=== PATIENT | female | born 1935 | race Caucasian/White ===

== ENCOUNTER 2016-08-16 14:00 | Outpatient (RCR) | payer MEDICARE, BC ==
[~2016-08-16 14:00] MED LIST: ALDACTONE 25MG25 MG PO; ASPIRIN 32325 MG/TAB PO; ASPIRIN 81M81 MG/TA2 PO; ATARAX 25MG25 MG/TAB PO; ATARAX25 MG PO; BENICAR; CARVEDILOL; COREG 6.256.25 MG/TA PO; COREG12.5 MG PO; ELMIRON 10100 MG/CA1 PO; HYDROXYZINE50 MG PO; IMDUR 60MG60 MG/TAB PO; IMDUR30 MG PO; LIP PO; LISINOPRIL2.5 MG PO; METOPROLOL25 MG PO; MICARDIS80 MG PO; NITROSTAT0.4 MG/TAB SL; NORVASC 5MG5 MG/TAB PO; PEPCID 20MG TAB20 MG; PLAVIX 75MG TAB75 MG PO; TYLENOL 325MG325 MG PO; XANAX0.25 MG PO
== END 2016-09-14 09:31 | disposition home or self-care (01) ==
LOC: WSOT 14:00
DX: G56.03 Carpal tunnel syndrome, bilateral upper limbs (principal)
CPT/HCPCS: G8987-GO; G8988-GO; G8989-GO

== ENCOUNTER 2017-05-08 07:19 | Day surgery (SDC) | payer MEDICARE, BC ==
[~2017-05-08] VITALS: Ht 167.6 cm; Wt 63.6 kg
[2017-05-08] VITALS (7 sets, daily range): BP systolic 98–131; BP diastolic 51–67; PULSE 59–68; TEMP 97.7
[~2017-05-08 07:19] MED LIST changes: +MICARDIS40 MG PO; -MICARDIS80 MG PO
[2017-05-08 08:10] LABS: INR 1.1 (0.8-3.0); PROTHROMBIN TIME 12.7 SECONDS (9.7-12.8)
[2017-05-08 08:11] LABS: MEAN CELL VOLUME 93 fl (80.0-100.0); MEAN CORPUSCULAR HGB CONC 32 g/dl (33.0-37.0); MEAN PLATELET VOLUME 10.5 fl (7.4-10.4); PLATELET COUNT 230 K/mm3 (130-400); RED BLOOD COUNT 3.37 M/mm3 (4.10-5.30); WHITE BLOOD COUNT 4.6 K/mm3 (4.8-10.8)
[2017-05-08 08:13] LABS: HEMATOCRIT 31.2 % (37.0-47.0); HEMOGLOBIN 10.1 g/dl (12.5-16.0); MEAN CORPUSCULAR HEMOGLOBIN 30 pg (27.0-31.0)
[2017-05-08 08:16] LABS: CALCIUM 10.2 mg/dL (8.4-10.2); CREATININE, serum 1.28 mg/dL (0.52-1.25); POTASSIUM 4.7 mmol/L (3.4-5.0)
[2017-05-08] MEDS ORDERED: ATARAX 25MG25 MG/TAB PO (08:31)
[2017-05-08] MEDS ORDERED: NORVASC 5MG5 MG/TAB PO (08:31)
[2017-05-08] MEDS ORDERED: COREG12.5 MG PO (08:33)
[2017-05-08] MEDS ORDERED: LUTEIN 15 MG-0.1 SGL PO (08:37)
[2017-05-08] MEDS ORDERED: CALCIUM 600-D 61 TAB PO (08:38)
[2017-05-08] MEDS ORDERED: OMEGA-31 SGL PO (08:39)
[2017-05-08] MEDS ORDERED: CEPHALEXIN500 M1 PO (11:07)
== END 2017-05-08 12:09 | disposition home or self-care (01) ==
LOC: COL.CAR 07:19
PROVIDERS: Internal Medicine Cardiovascular Disease
DX: Z45.02 Encounter for adjustment and management of automatic implantable cardiac defibrillator (principal); I25.10 Atherosclerotic heart disease of native coronary artery without angina pectoris; I13.0 Hypertensive heart and chronic kidney disease with heart failure and stage 1 through stage 4 chronic kidney disease, or unspecified chronic kidney disease; I50.9 Heart failure, unspecified; N18.9 Chronic kidney disease, unspecified; I65.29 Occlusion and stenosis of unspecified carotid artery; M19.90 Unspecified osteoarthritis, unspecified site; E78.5 Hyperlipidemia, unspecified; N30.10 Interstitial cystitis (chronic) without hematuria; Z90.710 Acquired absence of both cervix and uterus
CPT/HCPCS: C1721; J0690; J1940; J2250; J3010; J7030

== ENCOUNTER 2017-05-31 11:18 | Emergency (ER) | payer MEDICARE, BC ==
[~2017-05-31] VITALS: Ht 167.6 cm; Wt 63.6 kg
[~2017-05-31 11:18] MED LIST changes: +CALCIUM 600-D 61 TAB PO; +CEPHALEXIN500 M1 PO; +LUTEIN 15 MG-0.1 SGL PO; +OMEGA-31 SGL PO
[2017-05-31 11:22] VITALS: BP 153/68; TEMP 98.1
[2017-05-31] MEDS ORDERED: GOOD NEIGH3.4 GM/Dos PO (11:45)
[2017-05-31] MEDS ORDERED: NORCO 325 MG-51 TAB PO (12:52)
[2017-05-31 13:10] VITALS: PULSE 68
== END 2017-05-31 13:12 | disposition home or self-care (01) ==
LOC: COL.ER 11:18
DX: M79.605 Pain in left leg (principal); F41.9 Anxiety disorder, unspecified; I25.10 Atherosclerotic heart disease of native coronary artery without angina pectoris; Z86.718 Personal history of other venous thrombosis and embolism; Z79.82 Long term (current) use of aspirin; Z79.02 Long term (current) use of antithrombotics/antiplatelets; Z95.5 Presence of coronary angioplasty implant and graft

== ENCOUNTER → 2018-10-09 | Outpatient (CLI) | payer MEDICARE, BC ==
[~2018-10-09] MED LIST changes: +GOOD NEIGH3.4 GM/Dos PO; +NORCO 325 MG-51 TAB PO
== END ==
LOC: MC.RAD 14:28
DX: Z12.31 Encounter for screening mammogram for malignant neoplasm of breast (principal); Z95.0 Presence of cardiac pacemaker

== ENCOUNTER 2019-06-10 16:00 | Emergency (ER) | payer MEDICARE, BC ==
[~2019-06-10 16:00] MED LIST changes: -PEPCID 20MG TAB20 MG; +PEPCID AC 10MG10 MG PO
[2019-06-10 16:05] VITALS: TEMP 98
[2019-06-10 16:32] LABS: BASO % 0.6 % (0.0-2.0); EOS # 0.3 (0.0-0.7); EOS % 3.7 % (0-4.0); GRAN # 4.3 (1.4-6.5); GRAN % 59.9 % (42.2-75.2); HEMOGLOBIN 10.6 g/dl (12.5-16.0); LYMPH # 1.8 (1.2-3.4); LYMPH % 24.6 % (20.0-51.0); MEAN CELL VOLUME 95 fl (80.0-100.0); MEAN CORPUSCULAR HEMOGLOBIN 31 pg (27.0-31.0); MEAN CORPUSCULAR HGB CONC 33 g/dl (33.0-37.0); MEAN PLATELET VOLUME 10.1 fl (7.4-10.4); MONO # 0.8 (0.1-0.6); MONO % 11.1 % (1.7-9.3); PLATELET COUNT 228 K/mm3 (130-400); RED BLOOD COUNT 3.39 M/mm3 (4.10-5.30); REDCELL DISTRIBUTION WIDTH-CV 13.2 % (11.5-14.5)
[2019-06-10 16:43] LABS: ALANINE AMINOTRANSFERASE 20 U/L (9-52); ALBUMIN 4.8 gm/dL (3.5-5.0); ALKALINE PHOSPHATASE 90 U/L (50-136); ANION GAP 14 mmol/L (7-16); AST,SGOT 40 U/L (15-37); BILIRUBIN,TOTAL 0.6 mg/dL (0.0-1.0); BLOOD UREA NITROGEN 21 mg/dL (7-17); CALCIUM 9.7 mg/dL (8.4-10.2); CARBON DIOXIDE 21 mmol/L (22-30); CHLORIDE 103 mmol/L (98-107); CREATININE, serum 1.43 (0.52-1.25); GLUCOSE 119 mg/dL (74-106); POTASSIUM 5.1 mmol/L (3.4-5.0); SODIUM 137 mmol/L (137-145); TOTAL PROTEIN 8.6 gm/dL (6.4-8.2)
[2019-06-10 16:44] LABS: PROTHROMBIN TIME 11.8 SECONDS (9.7-12.8)
[2019-06-10 16:46] LABS: HEMATOCRIT 32.3 % (37.0-47.0)
[2019-06-10 16:47] LABS: PARTIAL THROMBOPLASTIN TIME 32.7 SECONDS (26.0-37.0)
[2019-06-10 16:53] LABS: TROPONIN-I < 0.012 ng/mL (0.000-0.035)
[2019-06-10 18:50] LABS: COLLECTION METHOD CLEAN CATCH
[2019-06-10 18:56] LABS: PH 7 (5-8); SQUAMOUS EPITHELIAL 0-2 /hpf; URINE APPEARANCE Clear; URINE BACTERIA None Seen /hpf; URINE BILIRUBIN Negative (NEGATIVE); URINE BLOOD Negative (NEGATIVE); URINE COLOR Yellow; URINE GLUCOSE Negative (NEGATIVE); URINE KETONE Negative (NEGATIVE); URINE LEUKOCYTE ESTERASE Negative (NEGATIVE); URINE NITRATE Negative (NEGATIVE); URINE PROTEIN(semi-quant) Negative (NEGATIVE); URINE RBC 0-2 /hpf; URINE UROBILINOGEN Negative (NEGATIVE)
[2019-06-10 20:35] VITALS: BP 122/68; PULSE 68
== END 2019-06-10 20:30 | disposition short-term general hospital (02) ==
LOC: COL.ER 16:00
PROVIDERS: Emergency Medicine
DX: G93.9 Disorder of brain, unspecified (principal); I25.10 Atherosclerotic heart disease of native coronary artery without angina pectoris; I50.9 Heart failure, unspecified; Z79.02 Long term (current) use of antithrombotics/antiplatelets
CPT/HCPCS: J7030; Q9967

== ENCOUNTER 2019-06-16 10:59 | Inpatient (IN) | payer MEDICARE, BC ==
[~2019-06-16] VITALS: Ht 165.1 cm; Wt 53.3 kg
--- NOTE | 2019-06-16 16:11 | NUR ---
Patient brought to room by wheel chair. Alert and oriented x4. Denies pain. Right side has been affected by stroke. Daughter in room with the patient.
[2019-06-16] MEDS ORDERED: ASPIRIN 81M81 MG/TA2 PO (16:17)
[2019-06-16] MEDS ORDERED: LOVENOX 3030 MG/0.3 SQ (16:20)
[2019-06-16] MEDS ORDERED: SENOKOT8.6 MG PO (16:22)
[2019-06-16] MEDS ORDERED: ZOLOFT 25MG25 MG PO (16:24)
[2019-06-16] MEDS ORDERED: ZTLIDO1 EACH TP (16:26)
[2019-06-16 16:48] VITALS: BP 119/79; PULSE 69; TEMP 99.5
[2019-06-16 16:50] VITALS: BP 119/79; PULSE 69; TEMP 99.2
--- NOTE | 2019-06-16 18:20 | NUR ---
Sitting on couch in room visiting with friends. Patient denies pain or further needs at this time.
--- NOTE | 2019-06-16 20:00 | NUR ---
PATIENT SITTING UP AT SIDE OF BED DURING SHIFT CHANGE REPORT FROM DAY SHIFT NURSE. DENIES ANY NEEDS OR CONCERNS AT TIME OF REPORT. ENCOURAGED PATIENT TO CALL FOR HELP FOR OUT OF BED ACTIVITIES.
[2019-06-16 20:27] VITALS: BP 114/81; PULSE 74; TEMP 99.3
--- NOTE | 2019-06-17 00:30 | NUR ---
RESTING QUIETLY IN BED WITH EYES CLOSED, DOES NOT AWAKEN WHEN ROOM ENTERED, BED ALARM ENGAGED.
--- NOTE | 2019-06-17 04:00 | NUR ---
BED NOT FUNCTIONING, MOVED TO ROOM 335. BED ALARM ENGAGED.
[2019-06-17 05:46] VITALS: BP 105/56; PULSE 70; TEMP 97.7
--- NOTE | 2019-06-17 07:40 | NUR ---
Patient in bed eating breakfast during shift change report given to day shift nurse. Bed alarm engaged.
--- NOTE | 2019-06-17 15:20 | NUR ---
SW met with the patient to complete initial, as the patient is new to [facility]. The patient lives alone in [place]. She states that her daughter, Lexi Fernandez (ph#[phone]), lives in [place]. She reports independence with ADLs before hospitalization and does not have any DME. The patient's PCP is Dr. Anali Lovett and she receives her medications at [facility]. She reports no difficulties obtaining her meds. The patient does not have advanced directives in EMR, but she states that she does have them completed at at home. She states that her daughter, Lexi, is her DPOA-HC. SW then presented and reviewed the IPR Team Conference Note with the patient and discussed the team's recommedation to re-eval next Saturday. The patient was in agreeance to this and had no other questions or concerns at this time. SW to continue to follow to ensure a safe discharge.
[2019-06-17 16:46] VITALS: BP 119/41; PULSE 66; TEMP 99.1
--- NOTE | 2019-06-17 18:46 | NUR ---
Shift summary: report from WINSTON Cross. Pt is pleasant, oriented x4, takes pills a few at a time with thin liquids, verified DNR status, asked questions about her meds, sitting in chair with alarm on, call lt in reach, glasses and shoes in place.
--- NOTE | 2019-06-17 20:00 | NUR ---
PATIENT UP IN CHAIR DURING SHIFT CHANGE REPORT FROM DAY SHIFT NURSE. CHAIR ALARM ENGAGED.
[2019-06-17] MEDS ORDERED: VISTARIL 2525 MG/CAP PO (21:30)
[2019-06-17] MEDS ORDERED: MICARDIS40 MG PO (21:31)
[2019-06-17] MEDS ORDERED: TYLENOL 500MG500 MG PO (21:35)
[2019-06-17] MEDS ORDERED: FLAXSEED OIL1000 MG PO (21:36)
[2019-06-17] MEDS ORDERED: LUTEIN 15 MG-0.1 SGL PO (21:36)
[2019-06-17] MEDS ORDERED: VITAMIN B COMPL1 SGL PO (21:37)
--- NOTE | 2019-06-18 01:35 | NUR ---
PATIENT RESTING WITH EYES CLOSED, DOES NOT AWAKEN WHEN ROOM ENTERED. BED ALARM ENGAGED
[2019-06-18 05:14] VITALS: BP 99/50; PULSE 72; TEMP 97.9
--- NOTE | 2019-06-18 07:21 | NUR ---
PATIENT RESTING IN BED DURING SHIFT CHANGE REPORT GIVEN TO DAY SHIFT NURSE. BED ALARM ENGAGED.
--- NOTE | 2019-06-18 08:00 | NUR ---
Patient resting in wheelchair awaiting therapy at this time. Patient is alert and oriented, answers questions appropriately. Patient brushes teeth indepentently. Patient denies pain or needs at this time, call light within reach.
[2019-06-18 15:28] VITALS: BP 98/46; PULSE 69; TEMP 100.6
[2019-06-18 17:26] LABS: BASO % 0.4 % (0.0-2.0); EOS # 0.1 (0.0-0.7); GRAN # 8.2 (1.4-6.5); GRAN % 77.5 % (42.2-75.2); LYMPH # 1.2 (1.2-3.4); LYMPH % 11.7 % (20.0-51.0); MEAN CELL VOLUME 93 fl (80.0-100.0); MEAN CORPUSCULAR HGB CONC 34 g/dl (33.0-37.0); MEAN PLATELET VOLUME 10.1 fl (7.4-10.4); PLATELET COUNT 211 K/mm3 (130-400); RED BLOOD COUNT 2.91 M/mm3 (4.10-5.30); REDCELL DISTRIBUTION WIDTH-CV 12.4 % (11.5-14.5)
[2019-06-18 17:28] LABS: CALCIUM 9.4 mg/dL (8.4-10.2); CREATININE, serum 1.38 (0.52-1.25); POTASSIUM 4.9 mmol/L (3.4-5.0)
[2019-06-18 17:33] LABS: HEMATOCRIT 27.1 % (37.0-47.0); HEMOGLOBIN 9.1 g/dl (12.5-16.0); MEAN CORPUSCULAR HEMOGLOBIN 31 pg (27.0-31.0)
--- NOTE | 2019-06-18 17:49 | NUR ---
Patient has had x4 loose stools today, has a low grade temp and is reporting chills. Called mid-level and reported these symptoms. Patient currently in bed eating dinner with daughter at bedside. Patient denies pain or further needs at this time, call light within reach.
--- NOTE | 2019-06-18 19:00 | NUR ---
SHIFT REPORT RECEIVED FROM JAHAIRA MONTERO. REPORTED PT HAD TEMP 100.6. AND HAD NOTIFIED LISA FAROOQ. NO NEW ORDERSAT THIS TIME PRE JAHAIRA MONTERO.
[2019-06-19 05:43] VITALS: BP 120/50; PULSE 72; TEMP 100
[2019-06-19 05:50] VITALS: BP 122/50; PULSE 73
--- NOTE | 2019-06-19 05:50 | NUR ---
PT RESTING IN BED. C/O SHE HAS A COLD. SL SORE THROAT. SMALL AMT SINUS DRAINGE. SL H/A. COOL CLOTH TO FOREHEAD. TEMP 100. ENC COUGH DEEP BREATH. LUNG SOUNDS UNCHANGED. ENC PO FLUIDS. HOB ELEVATED. TOOK PILLS WHOLE ONE AT A TIME WITH H20. SPEECH VERY WEAK.
--- NOTE | 2019-06-19 10:32 | NUR ---
SALLY met with the patient to follow up before the weekend. The patient states that she is not doing very well. She states that therapy is going well, but that she has a cold and does not feel good. She had no other questions or concerns for SW at this time. SW to continue to follow.
--- NOTE | 2019-06-19 10:33 | NUR ---
Report from WINSTON Hobson. Pt reports not feeling well today, like she has a cold. Blew her nose and had productive, thick yellow drainage. XIOMARA Garcia requested pt's vitals be checked as pt was fatiguing during session, pt was returned to bed for rest break. See vitals.
[2019-06-19 10:39] VITALS: BP 109/60; PULSE 62; TEMP 97.1
--- NOTE | 2019-06-19 15:51 | NUR ---
Provided warm blankets, hot tea with sugar, answered daughter's questions via phone, updated pt that flu and resp panel was negative, exchanged room ph as it was not ringing. Pt in bed with alarm on, call lt in reach.
[2019-06-19 16:31] VITALS: BP 74/46; PULSE 60; TEMP 97.5
[2019-06-19 19:15] VITALS: BP 103/41
[2019-06-19 19:25] VITALS: BP 110/56
--- NOTE | 2019-06-19 20:17 | NUR ---
Bedside report to WINSTON Carter. Pt received NS Bolus d/t low BP. Obtained orders for imodium PRN diarrhea. Tylenol and warm blankets given for general body aches. Reported UA still needs collected and perameters for BP meds. See vitals. Pt on 500 ml Free Water Restriction. Pt drowsy, pale, cold. Poor appetite. Bed alarm on, call lt in reach.
--- NOTE | 2019-06-19 21:30 | NUR ---
Patient in bed, drowsy. Oriented x4. Denies pain. SCD's placed. Denies further needs at this time. Will continue to monitor.
[2019-06-20 05:28] VITALS: BP 126/44; PULSE 78; TEMP 98
--- NOTE | 2019-06-20 06:03 | NUR ---
Patient in bed, awake. States, pain 6/10, generalized. Prn tylenol given per pt request. Will reassess. Denies further needs at this time. Will continue to monitor.
[2019-06-20 07:58] LABS: CALCIUM 8.6 mg/dL (8.4-10.2); CREATININE, serum 1.23 (0.52-1.25); MAGNESIUM 1.6 mg/dL (1.6-2.3); POTASSIUM 4.5 mmol/L (3.4-5.0)
--- NOTE | 2019-06-20 12:37 | NUR ---
P DID NOT WANT ANY FOOD. OFFERED SOUP AND CALLED THE KITCHEN FOR TOMATO SOUP PER PT REQUEST
[2019-06-20 17:50] VITALS: BP 118/89; PULSE 59; TEMP 98.3
--- NOTE | 2019-06-20 19:00 | NUR ---
PT HAS BEEN EXHAUSTED ALL DAY. STATES SHE HAS HAD A COUGH AND IT KEEPS HER AWAKE. FACIAL DROOPING TO LEFT SIDE. SHE IS ABLE TO CHEW HER FOOD. SHE HAS HAD PAIN MEDS TWICE TODAY. SHE NEEDS ASSIST WITH GETTING DRESSED AND UNDRESSED. SHE NEEDS HELP WITH HER FOOD. IVF INFUSING AT 75 CC/HR. PT HAS ALSO BEEN COLD TODAY AND WHEN CHECKED SHE HAS NO TEMP.
--- NOTE | 2019-06-20 20:45 | NUR ---
HS meds along with tylenol for left mid back pain and achyness all over reviewed and given 1 at a time with sips of tea. Patient up min assist with walker/gait slow and steady to the bathroom. Voids and manages all toileting tasks. Rests self back in bed. Patient appears exhausted and only took a few sips of ensure/only ate pudding off supper tray. SCD's applied. Encouraged to call for needs.
--- NOTE | 2019-06-20 22:00 | NUR ---
Patient rests in bed with eyes closed. Respirations with ease.
--- NOTE | 2019-06-21 01:55 | NUR ---
Patient complaints of mid left back pain states "2 days" and "cold". "can't couph. Lungs Cta except faint crackles RLL. Unsure about having shortness of breath. See vital signs. Damaris brooke notified of above and vitals and previous chest xray results 06/18/19. New orders received and tylenol 1000mg and robitussin given.
[2019-06-21 01:59] VITALS: BP 116/46; PULSE 71; TEMP 98
[2019-06-21 04:10] VITALS: BP 120/44; PULSE 71; TEMP 98.3
--- NOTE | 2019-06-21 04:11 | NUR ---
PATIENT REPORTS PAIN IMPROVED. OCCASIONAL DRY COUPH. STATES RESTED SOME.
--- NOTE | 2019-06-21 05:54 | NUR ---
PATIENT RESTING WITH EYES CLOSED. WOKE PATIENT FOR AM MED AND ROBITUSSIN GIVEN FOR COUPH.
--- NOTE | 2019-06-21 13:46 | NUR ---
1130CAT CALL MADE. PT SATS 88-89%. [address]CALLED DR CARRION AND GAVE HER THE INFORMATION. HAD TO LEAVE MSG ON HER PHONE 1230CALLED DR CARRION AND RECIEVED ORDERS FOR LASIX 40 MG IVSP AND PORTABLE CXR. DC IVF, DONE. PT WAS RESTING WITH HER EYES CLOSED AND HER MOUTH OPEN. SATS 95% ON 2L/NC 1300ORDERS IN THE COMPUTER FOR LASIX THIS WAS GIVEN. 1345PT UP AND VOIDED 500 CC ORANGISH URINE. ALSO HAD A SMALL AMT OF LOOSE STOOL IN BRIEFS. DID NOT SEND URINE FOR UAUC.
[2019-06-21 17:14] VITALS: BP 122/56; PULSE 74; TEMP 98.7
--- NOTE | 2019-06-21 19:00 | NUR ---
PATIENT RESTING IN BED DURING SHIFT CHANGE REPORT FROM DAY SHIFT NURSE. BED ALARM ENGAGED. OXYGEN CONTINUES PER NASAL CANNULA, OBSERVED MOIST NONPRODUCTIVE COUGH. DENIES ANY NEEDS OR COMPLAINTS CURRENTLY.
--- NOTE | 2019-06-22 01:10 | NUR ---
RESTING IN BED WITH EYES CLOSED, DOES NOT AWAKEN WHEN ROOM ENTERED. BED ALARM ENGAGED.
--- NOTE | 2019-06-22 01:50 | NUR ---
REPORTS "I FEEL BETTER THAN I DID BEFORE". UA SPECIMEN COLLECTED AND SENT TO LAB PER D.O. SEE eMAR FOR PRN MEDS GIVEN FOR C/O MASSIEL SIDES DISCOMFORT AND COUGH
[2019-06-22 02:05] LABS: COLLECTION METHOD CLEAN CATCH
[2019-06-22 02:19] LABS: MUCOUS Present /lpf; PH 5 (5-8); SQUAMOUS EPITHELIAL 0-2 /hpf; URINE APPEARANCE Hazy; URINE BACTERIA Rare /hpf; URINE BILIRUBIN Negative (NEGATIVE); URINE BLOOD Negative (NEGATIVE); URINE COLOR Yellow; URINE GLUCOSE Negative (NEGATIVE); URINE KETONE Negative (NEGATIVE); URINE LEUKOCYTE ESTERASE 3+ (NEGATIVE); URINE NITRATE Negative (NEGATIVE); URINE PROTEIN(semi-quant) Negative (NEGATIVE); URINE UROBILINOGEN Negative (NEGATIVE)
--- NOTE | 2019-06-22 03:14 | NUR ---
RESTING IN BED WITH EYES CLOSED, DOES NOT AWAKEN WHEN ROOM ENTERED. BED ALARM ENGAGED
[2019-06-22 06:04] VITALS: BP 122/54; PULSE 65; TEMP 98.1
--- NOTE | 2019-06-22 07:30 | NUR ---
PATIENT RESTING IN BED DURING SHIFT CHANGE REPORT GIVEN TO DAY SHIFT NURSE. CHAIR ALARM ENGAGED
--- NOTE | 2019-06-22 11:18 | NUR ---
Patient resting in recliner with call light within reach and daughter by her side. Patient requesting Tylenol to help with generalized aching this morning. Patient requested her [employer] soup for lunch today, but will look to see what the kitchen brings to her as well. Patient reports that she does not like the foods provided here at the hospital. She refused her supplemental snack this AM. Will continue to monitor.
--- NOTE | 2019-06-22 15:03 | NUR ---
Piano Professor met with patient to follow up from the weekend. Patient states she had a bladder infection so has not felt well. SW spoke with patient about setting up a family meeting and patient reports her daughter, Lexi works in [place]. SW contacted Lexi (ph#[phone]) who advised she feels it's important to attend this meeting in person. Lexi states she can ask for a sub for the afternoon and requested the latest appointment time available. SALLY set up family meeting for 1415 on 06/24/19. SALLY provided update to Yael, IPR Director.
[2019-06-22 17:00] VITALS: BP 113/64; PULSE 73; TEMP 97.9
--- NOTE | 2019-06-22 18:00 | NUR ---
Patient resting in bed requesting to eat her meal when lying in bed. Patient given prn tylenol to help with generalized pain today. Attended all therapies. Was a one assist to the bathroom using walker and gait belt. She reported this afternoon that she had not urinated most of the day, she had no pain with urination. Bladder scan completed with 142 ml reported. This was reported off to night nurse so that patient can be rescanned this evening if she does not have any urine output. Patient is on a 500 ml free water restriction.
--- NOTE | 2019-06-22 19:11 | NUR ---
PATIENT RESTING IN BED WITH EYES CLOSED, AWAKENS WHEN NAME CALLED, DURING SHIFT CHANGE REPORT FROM DAY SHIFT NURSE. BED ALARM ENGAGED.
--- NOTE | 2019-06-22 20:00 | NUR ---
GENERALIZED WEAKNESS, FATIGUES EASILY WITH EXERTION, DENIES SHORTNESS OF BREATHE BUT COUGHING INCREASED SOME WITH EXERTION. CONTINUES WEARING OXYGEN PER NASAL CANNULA.
--- NOTE | 2019-06-23 00:50 | NUR ---
RESTING IN BED WITH BED ALARM ENGAGED. NO NEEDS REPORTED
--- NOTE | 2019-06-23 02:43 | NUR ---
RESTING WITH EYES CLOSED, DOES NOT AWAKEN WHEN ROOM ENTERED. BED ALARM ENGAGED.
[2019-06-23 05:53] VITALS: BP 129/68; PULSE 72; TEMP 98.5
--- NOTE | 2019-06-23 07:23 | NUR ---
PATIENT RESTING IN BED DURING SHIFT CHANGE REPORT GIVEN TO DAY SHIFT NURSE. BED ALARM ENGAGED.
--- NOTE | 2019-06-23 07:33 | NUR ---
Bedside report from WINSTON Cross. Pt in bed on O2 per NC, applied glasses, boosted up in bed x2 assist, set up for breakfast, pt weak and drowsy. Call lt in reach.
[2019-06-23 16:06] VITALS: BP 106/84; PULSE 72; TEMP 98.5
--- NOTE | 2019-06-23 19:45 | NUR ---
Pt made progress today, reports feeling she's improved, on room air now. Tylenol and warm blanket given this afternoon when pt requested to bedrest after therapies, had several visitors today. Pt on 500 ml free water restriction, provided root beer at bedside. Bedside report to WINSTON Cross. Bed alarm on, call lt in reach.
--- NOTE | 2019-06-23 19:48 | NUR ---
PATIENT IN BED DURING SHIFT CHANGE REPORT FROM DAY SHIFT NURSE. BED ALARM ENGAGED. PATIENT ON ROOM AIR, DENIES ANY NEEDS DURING REPORT.
--- NOTE | 2019-06-23 21:00 | NUR ---
REPORTS WOULD LIKE TYLENOL LATER TONIGHT BUT WILL CALL WHEN SHE IS READY TO TAKE MORE TYLENOL. BED ALARM ENGAGED.
--- NOTE | 2019-06-24 03:28 | NUR ---
PATIENT RESTING IN BED WITH EYES CLOSED, DOES NOT AWAKEN WHEN ROOM ENTERED. BED ALARM ENGAGED.
[2019-06-24 05:55] VITALS: BP 127/53; PULSE 65; TEMP 98.5
--- NOTE | 2019-06-24 07:09 | NUR ---
PATIENT IN BED RESTING DURING SHIFT CHANGE REPORT GIVEN TO DAY SHIFT NURSE. BED ALARM ENGAGED.
[2019-06-24 07:50] LABS: CREATININE, serum 1.06 (0.52-1.25); MAGNESIUM 1.7 mg/dL (1.6-2.3); POTASSIUM 4.1 mmol/L (3.4-5.0)
[2019-06-24 16:04] VITALS: BP 104/54; PULSE 64; TEMP 98
--- NOTE | 2019-06-24 16:55 | NUR ---
Hazmat Truck Driver attended patient's family meeting which included patient's daughter Lexi, IPR Director Yael, and the therapy team. Patient's progress and barriers were discussed along with a tentative discharge date. During the meeting, patient's daughter expressed concern for patient's medication management upon discharge. Patient expressed that she plans to return home and is open to home health services. Patient's daughter also expressed concern for patient's home environment, specifically that there were stairs at home and that patient's bathtub was not safe. A home visit was discussed and scheduled for 06/26/19 at 1400. Patient is in agreeance. Following the family meeting, patient's daughter spoke with SALLY further about concerns for patient returning home. Lexi advised that patient will utilize the stairs in her home even though she doesn't need to, can't get in through the back door of her home, wasn't taking medications as prescribed, and would sometimes leave the oven on without realizing it. Lexi provided copy of patient's [facility] insurance coverage. SALLY advised Lexi to contact a Manager Quantitative through the insurance policy to assist with discharge planning. Lexi in agreeance. SALLY provided copy of team conference notes to patient who denies having any questions at this time. SW to continue to follow to ensure safe discharge.
--- NOTE | 2019-06-24 17:03 | NUR ---
Patient remains alert and oriented, currently resting in bedside recliner eating dinner, daughter at bedside. Patient denies needs at this time, call light within reach.
--- NOTE | 2019-06-24 20:30 | NUR ---
Patient reports chest congestion and couph med and tylenol reviewed and given along with scheduled HS meds. Repositions self up in bed. Takes her [employer] for a snack. States they were suppose to bring her up a supper tray but never did.
--- NOTE | 2019-06-24 22:30 | NUR ---
Rests quietly in bed. Respirations with ease. Encouraged IS and pulls to 500 about 3 times.
--- NOTE | 2019-06-25 02:30 | NUR ---
Patient rests with eyes closed. Respirations with ease.
[2019-06-25 03:48] VITALS: BP 137/62; PULSE 76; TEMP 97.7
--- NOTE | 2019-06-25 05:44 | NUR ---
PATIENT RESTS WITH EYES CLOSED FOLLOWING TYLENOL GIVEN EARLIER.
--- NOTE | 2019-06-25 07:13 | NUR ---
Bedside report from WINSTON Milner. Pt was asleep in bed, repositioned for breakfast, call lt in reach, pt on RA, denies pain, drowsy. Continue free water restriction, labs improving. Bed alarm on, call lt in reach.
--- NOTE | 2019-06-25 13:37 | NUR ---
Pt improved since two days ago, amb with walker, CGA, pt dressing self sitting bedside with set up and needed bra fastened in back and shoes tied and buttons snapped on shirt. Pleasant, tylenol for pain, takes pills one at a time with thin liquids, has difficulty grasping pills.
--- NOTE | 2019-06-25 16:03 | NUR ---
Brush Filler Hand was contacted by patient's daughter, Lexi who advised she tried to contact Care Coordination at patient's vermin exterminator care insurance policy and they would not talk with her unless they had patient authorization. SW met with patient who expressed she was fine with them sharing information with her daughter. SALLY contacted the policy at and facilitated conversation between patient and policy provider. Patient provided verbal authorization for policy provider to speak with Lexi. Policy provider provided a call back number for Lexi. Patient's family member at bedside advised she texted Lexi the phone number. SW to continue to follow.
[2019-06-25 17:50] VITALS: BP 93/49; PULSE 70; TEMP 98.5
--- NOTE | 2019-06-25 18:34 | NUR ---
Pt to chair for supper, midlevel reported pt choked on pizza this afternoon. Pt took pill without difficulty this evening. Chair alarm on, call lt in reach.
--- NOTE | 2019-06-25 21:00 | NUR ---
PT VERY FRAIL. RT SIDED FACIAL DROOP. SPEECH WEAK AND DIFFICULT TO UNDERSTAND. RT SIDED WEAKNESS. PT HAD THICK LOOSE NONPRODUCTIVE COUGH. INT NEEDLE LOOSE UNTAPED. RECHECK FOR PATENCY. SECURED WITH TAPE. PT TOOK PILLS WHOLE WITH WATER ONE AT AT TIME. SEE MAR FOR TYLENOL AND ROBITUSSIN GIVEN. CALL LIGHT IN REACH. BED ALARM SET.
[2019-06-26 05:50] VITALS: BP 110/62; PULSE 65; TEMP 98.5
--- NOTE | 2019-06-26 06:07 | NUR ---
ASSISTED PT UP TO BR WITH WALKER. UNSTEADY. VOIDED LG AMT. NO BM THIS SHIFT. SEE MAR FOR TYLENOL AND ROBITUSSIN GIVEN. CALL LIGHT IN REACH. BED ALARM SET.
--- NOTE | 2019-06-26 14:05 | NUR ---
Pt with therapy for home eval
--- NOTE | 2019-06-26 15:49 | NUR ---
Pt returned from home eval with BRIGIDO Lai
--- NOTE | 2019-06-26 16:16 | NUR ---
Student Development Dean attempted to meet with patient but patient was sleeping. SALLY spoke with RN, Nikki who advised patient had a big day with her home visit. SALLY will follow up on Saturday.
[2019-06-26 16:29] VITALS: BP 124/56; PULSE 66; TEMP 98.3
--- NOTE | 2019-06-26 23:43 | NUR ---
PT RESTING IN RECLINER. ASSISTED TO BR. C/O CONSTIPATION. HAD X1 TINY HARD STOOL. SEE MAR FOR BOWEL MEDS. ENC JUICES. APRAXIA WITH DISARTHIA NOTED. HAS SOME RT SIDED WEAKNESS. DENIES ANY FURTHER LT SIDED RIB PAIN TODAY. PT RELATES COUGHING IS IMPROVING. READY TO GO TO BED. CALL LIGHT IN REACH. BED ALARM SET.
[2019-06-27 06:00] VITALS: BP 126/67; PULSE 73; TEMP 97.5
--- NOTE | 2019-06-27 15:29 | NUR ---
Patient is a one assist with walker and gait belt to the bathroom. She attended group therapy this morning. She ate breakfast in bed this morning and had some difficulty with picking her morning pills up one at a time to place in her mouth. She did this independently, but took more time. Patient cued to sit up straight when eating and drinking to prevent any coughing. Patient given prn pain meds with good effect. Currently resting in recliner, call light in reach, alarm set and sipping on a fresh cup of ice water. Patient denies any questions at this time.
[2019-06-27 15:35] VITALS: BP 121/58; PULSE 62; TEMP 97.6
--- NOTE | 2019-06-27 17:59 | NUR ---
Patient resting in recliner with family by her side. Family brought her some potatoe soup to eat and she ate 100% of it this evening. Patient took pills whole one at a time. She has call light within reach and will continue to be monitored.
--- NOTE | 2019-06-27 21:30 | NUR ---
PT RESTING IN BED. C/O MOUTH BEING DRY. PT CHEWING ON GUM NOW. GENERALIZED ACHES. SEE MAR FOR TYLENOL AND ROBITUSSIN FOR COUGHING. PT SLEEPY. HOB UP. CALL LIGHT IN REACH. BED ALARM SET.
[2019-06-28 05:39] VITALS: BP 123/65; PULSE 60; TEMP 97.8
--- NOTE | 2019-06-28 10:34 | NUR ---
Patient resting in bed at this time, call light in reach and bed alarm is on. Patient given prn tylenol to help with generalized pain this morning. Patient visited about her life and her that had last year. She said they had been more then 60 years. Patient was set up only for her hygiene this morning. Patient washed face by herself, but was handed the wash cloth.
--- NOTE | 2019-06-28 13:02 | NUR ---
Patient's family brought in potatoe soup from [employer] and patient ate all of this. Patient denies any questions at this time. Will continue to monitor.
[2019-06-28 15:40] VITALS: BP 108/47; BP 128/64; PULSE 59; TEMP 98.1
--- NOTE | 2019-06-28 21:00 | NUR ---
PT SITTING ON SIDE OF BED. WANTS TO GET READY FOR BED. ASSITED TO BR. RT SIDED WEAKNESS. VOIDED. NEEDED ASSIST TO CHANGE CLOTHING TIMEFRAME. SEVERAL TIMES PT IMPULSIVELY ATTEMPTS TO STAND UP WHILE STILL GETTING NIGHT CLOTHING ON. NEEDS CUES HER TASK IS NOT FINISHED YET. AMB TO SINK WASHES FACE AND BRUSHES TEETH HERSELF. THEN TO BED. ALMOST GOT LEGS INTO BED HERSELF. LT WRIST SUPPORT PLACED. HELPED PT MOVE THINGS TO SIDE TABLE SHE NEEDED. CALL LIGHT IN REACH. BED ALARM SET. DENIES OTHER NEEDS. SEE MAR FOR ROBITIUSSIN GIVEN PER REQ. MOCCASIONAL COUGH BUT MUCH LESS FREQUENCY.
[2019-06-29 05:32] VITALS: BP 139/63; PULSE 66; TEMP 97.8
--- NOTE | 2019-06-29 06:12 | NUR ---
WOKE UP EARLIER IN THE NIGHT- CONFUSED. USED CALL LIGHT- REORIENTED. PT C/O BEING VERY HOT. ASSISTED TO BR. VOIDED. WASHED FACE. VSS. PT RETURNS TO BED.
--- NOTE | 2019-06-29 07:52 | NUR ---
Bedside report from WINSTON Hobson. Pt was asleep in bed, awakened and boosted up in bed and HOB elevated for breakfast, pt reports not feeling well upon awakening last night, received tylenol, given more, to chair for breakfast with alarm on, call lt in reach, glasses in place, yellow gown/grippers/wrist band in place. Pt is alert, pleasant, weak.
[2019-06-29 08:16] LABS: CALCIUM 8.8 mg/dL (8.4-10.2); CREATININE, serum 0.96 (0.52-1.25); MAGNESIUM 1.5 mg/dL (1.6-2.3); POTASSIUM 4.5 mmol/L (3.4-5.0)
--- NOTE | 2019-06-29 16:34 | NUR ---
Spoke with daughter and OA-HC, lexi Fernandez, by phone this afternoon after visiting with pt Selina on IPR. Selina, who goes by Delmy, is very definitely wanting to go home and anticipating discharge on Saturday. Family has arranged for someone to be with her over the weekend until Saturday evening. [facility] evaluation team will visit her on July 09 to evaluate for their home service coverage. Daughter has many concerns about her mother's ability to care for herself at home and wants a safe environment for her. We did discuss palliative Home Health and I did give her Homecare and Hospice's contact information for her questions. She is wanting a life alert to be placed. Lexi will meet with Joycelyn, social work, tomorrow afternoon after school at 4pm. I reviewed this conversation with Joycelyn so discussion can continue.
--- NOTE | 2019-06-29 16:35 | NUR ---
Payroll Tax Analyst spoke with patient's daughter, Lexi (ph#[phone]) to discuss discharge needs. Lexi would like to meet with SW to discuss Home Health and DME options. Lexi also would like information and assistance with a home alert system for patient. SW will meet with Lexi at 1600 tomorrow to review these items. SW met with patient to check in and patient reports the weekend went by slow. Patient states she feels the home visit on Saturday went well. SW informed patient that she and Lexi will meet with her tomorrow at 1600 and patient states this sounds good.
[2019-06-29 16:37] VITALS: BP 142/67; PULSE 62; TEMP 97.4
--- NOTE | 2019-06-29 20:14 | NUR ---
Bedside report to WINSTON Milner. Pt had a good day, given ensure jordy when didn't eat well x2. Ordered Palliative Care Consult d/t pt's comorbidities and fragility.
--- NOTE | 2019-06-29 21:00 | NUR ---
Patient returned from the bathroom accompanied by SHELL PLATER and dressed self in gown for the night. HS meds all reviewed and taken 1 at a time along with tylenol for generalized discomfort. No couph noted at this time and denies shortness of breath.
--- NOTE | 2019-06-29 23:00 | NUR ---
Rests with eyes closed.
--- NOTE | 2019-06-30 02:10 | NUR ---
Rests with eyes closed. Respirations with ease.
[2019-06-30 03:40] VITALS: BP 127/59; PULSE 63; TEMP 98
--- NOTE | 2019-06-30 05:45 | NUR ---
Patient up to the bathroom CGA with walker and back to bed. Offered tylenol for general discomfort and given.
--- NOTE | 2019-06-30 16:23 | NUR ---
Wrist Closer met with patient and patient's daughter, Lexi to review discharge plan. SW provided Medicare.gov list of Home Health agencies and will follow up on patient choice. Lexi discussed palliative HH vs PT/OT HH with patient and SW. SW also provided resources for home alert systems and private duty services. Lexi expressed that patient will need a walker and that patient's neighbor is planning on giving one to her. SW advised that typically Medicare will cover a front wheeled walker. SW presented DME choice form to patient and she selected [facility]. SW will follow up with order and referral. SW directed Lexi to list of DME providers on the DME choice form to explore other needs like transfer chair and stool riser. SW to continue to follow on discharge needs.
[2019-06-30 16:52] VITALS: BP 128/49; PULSE 62; TEMP 98.8
--- NOTE | 2019-06-30 18:00 | NUR ---
Patient has been doing well today. Minimal complaints of pain today. Has been only stating she is feeling tired and worn out from her therapy today. She had visitors this afternoon. No complaints of nausea. No other changes at this time. Call light within reach.
--- NOTE | 2019-06-30 18:00 | NUR ---
Patient had increased pain with therapy today. Roxicodone given once because patient had tylenol and it was too soon to give more. No complaints of nausea. Stated her pain increased because she was working harder today. No other changes at this time. Dressing remains C/D/I. No other changes at this time. Call light within reach.
--- NOTE | 2019-06-30 19:30 | NUR ---
HS med along with tylenol for generalized discomfort reviewed and given. Patient ate 100% of supper and declines snack. Ice given for pop. Declines HS care.
--- NOTE | 2019-06-30 22:00 | NUR ---
Rests with eyes closed. Respirations with ease.l
--- NOTE | 2019-07-01 02:26 | NUR ---
Rests on left side with eyes closed. Respirations with ease.
[2019-07-01 04:00] VITALS: BP 134/52; PULSE 68; TEMP 98
--- NOTE | 2019-07-01 05:30 | NUR ---
PATIENT AWAKE AND UP TO BATHROOM THEN BACK TO BED. TYLENOL GIVEN FOR GENERAL DISCOMFORT.
--- NOTE | 2019-07-01 16:28 | NUR ---
Pmp Project Manager faxed signed order for Front Wheeled Walker to [facility] along with Facesheet, History and Physical, and therapy notes. SALLY spoke with Addison at [facility] and advised that discharge date is set for Saturday (07/03/19). SALLY then met with patient to review and provide copy of team conference notes. Patient reports she believes she and her daughter have selected [facility] services. SALLY contacted patient's daughter, Lexi who advised she contacted [facility] to discuss in home supports. Lexi to provide transportation for patient upon discharge and plans to arrive at 1600 on 07/03/19. SALLY faxed referral to [facility] and will continue to follow.
[2019-07-01 16:32] VITALS: BP 131/64; PULSE 62; TEMP 98.3
--- NOTE | 2019-07-01 19:44 | NUR ---
Shift summary: Pt was made mod I in rm w/ walker today, glasses in place, tylenol for pain. Plan to discharge 07/03. Ensure jordy given this afternoon. Pt still has difficulty with dexterity taking pills without dropping them. Report to WINSTON Hobson.
--- NOTE | 2019-07-01 21:00 | NUR ---
PT RESTING ON BED. WATCHING SPORTS. RT SIDED MOUTH DROOP. DYARTHAI/ APRAXIA NOTED. RT SIDED WEAKNESS. REFUSES SCD'D. WANTYS TYLENOL WHEN TIME- BACK AND GENERALIZED ACHES. SEE MAR. SEE SHIFT ASSESSMWENT.
[2019-07-02 05:37] VITALS: BP 130/58; PULSE 67; TEMP 97.7
--- NOTE | 2019-07-02 08:36 | NUR ---
Report from WINSTON Hobson. Pt akil mod I in rm w/ walker. Supervision for meds administration as pt drops pills and has min difficulty swallowing them one at a time. Tylenol for pain. Coffee provided, updated diet order to remove fluid restriction. Glasses in place, pt is dressing in chair. ST with pt now.
--- NOTE | 2019-07-02 15:11 | NUR ---
Bak[employer] Internship was contacted by Josh at [facility]. Patient to be evaluated by [facility] tomorrow (07/03/19) at 1100. SALLY provided update to patient, patient's daughter Lexi, and IPR Director Yael. SALLY also spoke with Lexi and confirmed that 1600 would work for Lexi to orange picker patient upon discharge. SW to continue to follow.
[2019-07-02 16:18] VITALS: BP 136/72; PULSE 60; TEMP 98.4
--- NOTE | 2019-07-02 16:41 | NUR ---
Pt akil mod i in rm w/ walker. Plans to discharge home tomorrow afternoon, SW told this nurse that pt's daughter would pick her up after 1500.
--- NOTE | 2019-07-02 20:00 | NUR ---
PT SITTING IN RECLINER WATCHING TV. RT SIDED WEAKNESS. MOD I IN ROOM. PT FEELS SHE IS STEADY W/WALKER. CALL LIGHT IN REACH.
--- NOTE | 2019-07-02 20:02 | NUR ---
Bedside report to WINSTON Hobson. Pt denied needs.
[2019-07-03 04:54] VITALS: BP 130/71; PULSE 64; TEMP 97.7
[2019-07-03 08:16] LABS: BASO % 0.5 % (0.0-2.0); EOS # 0.2 (0.0-0.7); EOS % 3.7 % (0-4.0); GRAN # 4.1 (1.4-6.5); GRAN % 72.5 % (42.2-75.2); LYMPH # 0.8 (1.2-3.4); LYMPH % 14.2 % (20.0-51.0); MEAN CELL VOLUME 98 fl (80.0-100.0); MEAN CORPUSCULAR HGB CONC 32 g/dl (33.0-37.0); MEAN PLATELET VOLUME 9.2 fl (7.4-10.4); MONO # 0.5 (0.1-0.6); MONO % 8.6 % (1.7-9.3); PLATELET COUNT 439 K/mm3 (130-400); RED BLOOD COUNT 2.77 M/mm3 (4.10-5.30); REDCELL DISTRIBUTION WIDTH-CV 14.2 % (11.5-14.5)
[2019-07-03 08:22] LABS: HEMOGLOBIN 8.6 g/dl (12.5-16.0); MEAN CORPUSCULAR HEMOGLOBIN 31 pg (27.0-31.0)
[2019-07-03 08:26] LABS: CALCIUM 9.3 mg/dL (8.4-10.2); CREATININE, serum 1.09 (0.52-1.25); POTASSIUM 4.9 mmol/L (3.4-5.0)
--- NOTE | 2019-07-03 09:54 | NUR ---
Follow-up visit; Patient thanked Sales Expert for looking in on her and offering God's blessings and healing.
--- NOTE | 2019-07-03 11:12 | NUR ---
Bedside report to WINSTON Hobson. Pt akil mod I in rm w/ walker. When asked if she watned Tylenol this morning, she reminded this nurse that she had taken some this morning from maintenance supervisor 2nd shift nurse. Pt is dressed, in chair for breakfast. Given Ensure Radha. Takes pills one at a time from palm of this nurse's hand as pt has difficulty with dexterity and dropping pills- supervised. Glasses and shoes in place, states she feels ready to go home today, her daughter will pick her up this afternoon. Pt denies further needs at this time.
[2019-07-03] MEDS ORDERED: EPA FISH OIL1 SGL PO (11:40)
[2019-07-03] MEDS ORDERED: MAG-OX 400400 MG/TAB PO (11:41)
[2019-07-03] MEDS ORDERED: LASIX 20MG TABL20 MG PO (11:41)
[2019-07-03] MEDS ORDERED: FLONASE NASAL S16 GM NS (11:41)
[2019-07-03] MEDS ORDERED: FERRO-TIME325 MG PO (11:42)
--- NOTE | 2019-07-03 14:17 | NUR ---
Ferry Boat Captain contacted [facility] who confirmed front wheeled walker will be delivered today. SW was contacted by [facility] who advised they would not be able to provide OT. SALLY spoke with daughter, Lexi and met with patient about another home health option. Patient selected [facility]. SALLY faxed referral and left a message for Alexy at [facility]. SALLY to continue to follow.
--- NOTE | 2019-07-03 15:42 | NUR ---
Meter Tester Primary spoke with Alexy at [facility] who advised they could accept referral. SW faxed discharge orders and provided update to patient and patient's daughter, Lexi. Patient to discharge home today with [facility] for PT/OT/ST.
--- NOTE | 2019-07-03 20:32 | NUR ---
Printed pt health summary, discharge summary, and home med list and reviewed with pt and daughter Lexi [place]. Called pt's pharmacy and verified med list, updated changes. Stressed importance of follow up appts, daughter will need to reschedule to her convenience. Belongings gathered by pt/staff/family including glasses, wallet, clothes, books, phone and new walker. Pt transported via wheelchair by TERRI Thomas for ride home with daughter. Pt and daughter denied questions.
== END 2019-07-03 16:15 | disposition home health service (06) | DRG 57 ==
PROVIDERS: ADMIT Internal Medicine
DX: I69.351 Hemiplegia and hemiparesis following cerebral infarction affecting right dominant side (principal); I42.9 Cardiomyopathy, unspecified; E87.1 Hypo-osmolality and hyponatremia; N39.0 Urinary tract infection, site not specified; I69.393 Ataxia following cerebral infarction; I10 Essential (primary) hypertension; I25.10 Atherosclerotic heart disease of native coronary artery without angina pectoris; I69.222 Dysarthria following other nontraumatic intracranial hemorrhage; E78.5 Hyperlipidemia, unspecified; F41.9 Anxiety disorder, unspecified; F32.9 Major depressive disorder, single episode, unspecified; G62.9 Polyneuropathy, unspecified; I25.2 Old myocardial infarction; Z79.82 Long term (current) use of aspirin; Z95.0 Presence of cardiac pacemaker; Z95.5 Presence of coronary angioplasty implant and graft; Z90.710 Acquired absence of both cervix and uterus
CPT/HCPCS: 99222-AI; 99231-AI; 99232-AI; 99233-AI; 99239; A9284; J1650; J1940; J7030

== ENCOUNTER → 2019-10-29 | Outpatient (CLI) | payer MEDICARE, BC ==
[~2019-10-29] MED LIST changes: +EPA FISH OIL1 SGL PO; +FERRO-TIME325 MG PO; +FLAXSEED OIL1000 MG PO; +FLONASE NASAL S16 GM NS; +LASIX 20MG TABL20 MG PO; +LOVENOX 3030 MG/0.3 SQ; +MAG-OX 400400 MG/TAB PO; +SENOKOT8.6 MG PO; +TYLENOL 500MG500 MG PO; +VISTARIL 2525 MG/CAP PO; +VITAMIN B COMPL1 SGL PO; +ZOLOFT 25MG25 MG PO; +ZTLIDO1 EACH TP
== END ==
LOC: COL.RAD 10-27 07:30
DX: C83.31 Diffuse large B-cell lymphoma, lymph nodes of head, face, and neck (principal); I63.9 Cerebral infarction, unspecified; Z95.0 Presence of cardiac pacemaker; Z92.21 Personal history of antineoplastic chemotherapy
CPT/HCPCS: A9585

== ENCOUNTER 2019-12-09 13:31 | Observation (INO) | payer MEDICARE, BC ==
[~2019-12-09] VITALS: Ht 165.1 cm; Wt 46.1 kg
[2019-12-09] MEDS ORDERED: LIPITOR 80MG80 MG PO (13:55)
[2019-12-09] MEDS ORDERED: EPA FISH OIL1 SGL PO (13:57)
[2019-12-09] MEDS ORDERED: IMBRUVICA420 MG PO (13:59)
[2019-12-09 14:10] LABS: BASO # 0.1 (0.0-0.2); BASO % 0.9 % (0.0-2.0); EOS # 0.2 (0.0-0.7); EOS % 2.6 % (0-4.0); GRAN # 3.3 (1.4-6.5); GRAN % 57.7 % (42.2-75.2); HEMOGLOBIN 10.3 g/dl (12.5-16.0); LYMPH # 1.3 (1.2-3.4); LYMPH % 23.3 % (20.0-51.0); MEAN CELL VOLUME 92 fl (80.0-100.0); MEAN CORPUSCULAR HEMOGLOBIN 30 pg (27.0-31.0); MEAN CORPUSCULAR HGB CONC 32 g/dl (33.0-37.0); MEAN PLATELET VOLUME 12.4 fl (7.4-10.4); MONO # 0.8 (0.1-0.6); MONO % 14.3 % (1.7-9.3); PLATELET COUNT 152 K/mm3 (130-400); RED BLOOD COUNT 3.49 M/mm3 (4.10-5.30); REDCELL DISTRIBUTION WIDTH-CV 12.9 % (11.5-14.5)
[2019-12-09 14:11] LABS: HEMATOCRIT 32.1 % (37.0-47.0)
[2019-12-09 14:12] LABS: INR 1.1 (0.8-3.0); PROTHROMBIN TIME 12.4 SECONDS (9.7-12.8)
[2019-12-09 14:15] LABS: ALBUMIN 4.3 gm/dL (3.5-5.0); BILIRUBIN,TOTAL 0.8 mg/dL (0.0-1.0); CALCIUM 9.8 mg/dL (8.4-10.2); CREATININE, serum 1.62 (0.52-1.25); POTASSIUM 4.5 mmol/L (3.4-5.0); TOTAL PROTEIN 7.6 gm/dL (6.4-8.2)
[2019-12-09 15:11] LABS: COLLECTION METHOD CLEAN CATCH
[2019-12-09 15:21] LABS: MUCOUS Present /lpf; PH 6 (5-8); SQUAMOUS EPITHELIAL 0-2 /hpf; URINE APPEARANCE Hazy; URINE BACTERIA Rare /hpf; URINE BILIRUBIN Negative (NEGATIVE); URINE BLOOD Negative (NEGATIVE); URINE COLOR Yellow; URINE GLUCOSE Negative (NEGATIVE); URINE KETONE Negative (NEGATIVE); URINE LEUKOCYTE ESTERASE Negative (NEGATIVE); URINE NITRATE Negative (NEGATIVE); URINE PROTEIN(semi-quant) Negative (NEGATIVE); URINE RBC 0-2 /hpf; URINE UROBILINOGEN Negative (NEGATIVE)
[2019-12-09 19:45] VITALS: BP 117/41; PULSE 60; TEMP 99
--- NOTE | 2019-12-09 19:53 | NUR ---
Pt arrived to nursing unit before this RN came on to shift. Pt report received from WINSTON Pressley. On assessment at this time, pt is alert and oriented x4 and answering questions appropriately. Mild right sided weakness present that pt states is her baseline from her previous stroke. Pt oriented to room and call light. Pharmacy reviewed with pt. Pt denies any know allergies. Unable to complete med rec at this time- pt states that she does not know what medications she takes at home, what dose of medications she takes or when she last had each medication. IVF infusing to left ac IV site. Pt denies any other needs. Call light within reach. Fall precautions in place. Bed alarm on. Will continue to monitor.
[2019-12-09 21:22] VITALS: BP 117/41; PULSE 60; TEMP 99
[2019-12-09 23:13] VITALS: BP 107/55; PULSE 62; TEMP 98
[2019-12-10 03:30] VITALS: BP 115/43; PULSE 60; TEMP 98.2
--- NOTE | 2019-12-10 05:09 | NUR ---
Pt had uneventful shift. Pt rested well throughout the night. Pt has remained A&O x4 during the night with some right sided weakness that pt states is baseline for her since her last stroke. No complaints of pain. IVF infusing per orders to left AC IV. Pt denies any other needs. Call light within reach. Fall precautions in place. Bed alarm on.
[2019-12-10 06:51] LABS: BASO # 0.1 (0.0-0.2); BASO % 1.2 % (0.0-2.0); EOS # 0.2 (0.0-0.7); EOS % 3.7 % (0-4.0); GRAN # 2.2 (1.4-6.5); GRAN % 50.7 % (42.2-75.2); LYMPH # 1.2 (1.2-3.4); LYMPH % 28.7 % (20.0-51.0); MEAN CELL VOLUME 93 fl (80.0-100.0); MEAN CORPUSCULAR HGB CONC 33 g/dl (33.0-37.0); MEAN PLATELET VOLUME 12.6 fl (7.4-10.4); MONO # 0.6 (0.1-0.6); MONO % 14.5 % (1.7-9.3); PLATELET COUNT 126 K/mm3 (130-400); RED BLOOD COUNT 3.06 M/mm3 (4.10-5.30); REDCELL DISTRIBUTION WIDTH-CV 12.9 % (11.5-14.5)
[2019-12-10 07:02] LABS: ALBUMIN 3.5 gm/dL (3.5-5.0); BILIRUBIN,TOTAL 0.6 mg/dL (0.0-1.0); CALCIUM 9.1 mg/dL (8.4-10.2); CREATININE, serum 1.5 (0.52-1.25); POTASSIUM 4.2 mmol/L (3.4-5.0); TOTAL PROTEIN 6.4 gm/dL (6.4-8.2)
[2019-12-10 07:04] LABS: HEMATOCRIT 28.3 % (37.0-47.0); HEMOGLOBIN 9.3 g/dl (12.5-16.0); MEAN CORPUSCULAR HEMOGLOBIN 30 pg (27.0-31.0)
[2019-12-10 07:59] VITALS: BP 128/49; PULSE 57; TEMP 98.6
--- NOTE | 2019-12-10 08:29 | NUR ---
PT AOX4. DENIES PAIN. WOBBLY GAIT STEADY WITH CONTATC GUARD ASSIST. CHRONIC LIMITED RT ARM ROM FROM PREVIOUS STROKE WITH 3/5 CLIENT SERVICE SUPERVISOR WEAKNESS. PT DENIES ANY CHANGES FROM PREVIOUS STATE AND REPORTS SHE WAS PROBABLY JUST SLEEPY. TOLERATED PILLS. IV TO LAC INTACT WITH IVF ORDERED. WILL CONT TO MONITOR
[2019-12-10 12:27] VITALS: BP 139/51; PULSE 63; TEMP 97.6
--- NOTE | 2019-12-10 14:35 | NUR ---
PT DISCHARGED TO HOME ACCOMPANIED BY DAUGHTER @ 1430. DENIES PAIN, STARKS, VERTIGO, SOA, CP. GAIT STEADY WITH WALKER. DAUGHTER GIVEN HOSPITALIZATION RESULTS OVER THE PHONE AND PAPERWORK REVIEWED AND SENT WITH PT. DAUGHTER REPORTS PT HAS AN APPT WITH PCP AND ONCOLOGIST TOMORROW 12/10 AND WILL KEEP. NO NEW CONCERNS
== END 2019-12-10 14:30 | disposition home or self-care (01) ==
LOC: COL.ER 13:31 → MEDICAL 16:52
PROVIDERS: Nurse Practitioner Primary Care; ADMIT Internal Medicine
DX: R41.3 Other amnesia (principal); C71.9 Malignant neoplasm of brain, unspecified; I63.9 Cerebral infarction, unspecified; I11.0 Hypertensive heart disease with heart failure; I50.20 Unspecified systolic (congestive) heart failure; G62.9 Polyneuropathy, unspecified; E78.5 Hyperlipidemia, unspecified; F32.9 Major depressive disorder, single episode, unspecified; F41.9 Anxiety disorder, unspecified; Z90.710 Acquired absence of both cervix and uterus; Z79.02 Long term (current) use of antithrombotics/antiplatelets
CPT/HCPCS: G0378; J1644; J7030

== ENCOUNTER → 2020-01-05 | Outpatient (CLI) | payer MEDICARE, BC ==
[~2020-01-05] MED LIST changes: +IMBRUVICA420 MG PO; +LIPITOR 80MG80 MG PO
== END ==
LOC: COL.RAD 10:05
DX: C83.31 Diffuse large B-cell lymphoma, lymph nodes of head, face, and neck (principal); Z95.0 Presence of cardiac pacemaker; Z92.21 Personal history of antineoplastic chemotherapy
CPT/HCPCS: A9585

== ENCOUNTER → 2020-03-07 | Outpatient (CLI) | payer MEDICARE, BC | LOC: COL.RAD 11:42 | DX: C85.90 Non-Hodgkin lymphoma, unspecified, unspecified site (principal) | CPT/HCPCS: A9585 ==

== ENCOUNTER 2020-05-20 10:43 | Inpatient (IN) | payer MEDICARE, BC ==
[~2020-05-20] VITALS: Ht 165.1 cm; Wt 60.7 kg
[2020-05-20 11:21] LABS: COLLECTION METHOD CATHETER
[2020-05-20 11:45] LABS: PH 6 (5-8); SQUAMOUS EPITHELIAL 0-2 /hpf; URINE APPEARANCE Hazy; URINE BACTERIA None Seen /hpf; URINE BILIRUBIN Negative (NEGATIVE); URINE BLOOD 3+ (NEGATIVE); URINE COLOR Yellow; URINE GLUCOSE Negative (NEGATIVE); URINE KETONE Negative (NEGATIVE); URINE LEUKOCYTE ESTERASE Negative (NEGATIVE); URINE NITRATE Negative (NEGATIVE); URINE PROTEIN(semi-quant) 2+ (NEGATIVE); URINE RBC >50 /hpf; URINE UROBILINOGEN Negative (NEGATIVE)
[2020-05-20 12:00] LABS: MEAN CELL VOLUME 91 fl (80.0-100.0); MEAN CORPUSCULAR HGB CONC 32 g/dl (33.0-37.0); MEAN PLATELET VOLUME 12.7 fl (7.4-10.4); PLATELET COUNT 123 K/mm3 (130-400); RED BLOOD COUNT 3.35 M/mm3 (4.10-5.30); REDCELL DISTRIBUTION WIDTH-CV 13.8 % (11.5-14.5)
[2020-05-20 12:05] LABS: INR 1.3 (0.8-3.0); PROTHROMBIN TIME 14.6 SECONDS (9.7-12.8)
[2020-05-20 12:22] LABS: ALBUMIN 3.6 gm/dL (3.5-5.0); BILIRUBIN,TOTAL 2.1 mg/dL (0.0-1.0); CALCIUM 8.6 mg/dL (8.4-10.2); CREATININE, serum 1.44 (0.52-1.25); POTASSIUM 4.3 mmol/L (3.4-5.0); TOTAL PROTEIN 6.5 gm/dL (6.4-8.2)
[2020-05-20 12:32] LABS: HEMATOCRIT 30.4 % (37.0-47.0); HEMOGLOBIN 9.7 g/dl (12.5-16.0); MEAN CORPUSCULAR HEMOGLOBIN 29 pg (27.0-31.0)
[2020-05-20 12:39] LABS: TROPONIN-I 0.09 ng/mL (0.000-0.035)
[2020-05-20 13:00] LABS: BAND 8 % (0-10); LYMPHOCYTE 6 % (20.0-51.0); NEUTROPHILS 85 % (42.0-75.2)
[2020-05-20 13:01] LABS: PLATELET ESTIMATE DECREASED (NORMAL)
[2020-05-20 13:02] LABS: HYPOCHROMIA 2+
[2020-05-20 13:03] LABS: BURR CELLS 1+; HYPERSEGMENTED POLYS PRESENT; OVALOCYTES 1+; SCHISTOCYTES 1+
[2020-05-20 13:04] LABS: SPHEROCYTE 1+
[2020-05-20 13:05] LABS: HELMET CELLS 1+; POIKILOCYTOSIS 1+
[2020-05-20] MEDS ORDERED: TYLENOL/CODEINE1 ML PO (13:05)
[2020-05-20] MEDS ORDERED: LASIX 20MG TABL20 MG PO (13:06)
--- NOTE | 2020-05-20 15:00 | NUR ---
PATIENT ADMITED INTO ROOM 342 VIA CART FROM ER. PATIENT FELL AT HOME AND NEEDS PLACEMENT. VSS. DENIES PAIN AT REST. ER GAVE IV MORPHINE BEFORE TRANSFERING TO FLOOR PER NURSES REPORT. NOTED ECCYMOSIS ALL OVER BODY FROM FREQUENT FALLS. PATIENT HAS HX OF BRAIN TUMOR, FALLS & EXTENSIVE CARDIAC HX. HEAD CT WAS NEGATIVE. PATIENT DOES HOWEVER HAVE PUBIC FX, NON-SURGICAL. PATIENT RESTING IN BED. ORIENTED TO ROOM. CALL LIGHT IN REACH. HEAD TO TOE ASSESSMENT COMPLETE.
[2020-05-20 15:05] VITALS: BP 134/51; PULSE 78; TEMP 97.5
[2020-05-20 15:06] VITALS: BP 134/51; PULSE 78; TEMP 97.5
[2020-05-20 16:21] VITALS: BP 134/51; PULSE 78; TEMP 97.5
--- NOTE | 2020-05-20 16:56 | NUR ---
Building Construction Contractor received consult in the ED as patient has had multiple falls and pelvic fracture. SW contacted patient's daughter, Lexi (ph#[phone]) who advised patient lives home alone and receives in home services from [facility]. Per Lexi, patient has falled several times over the last few weeks. SW discussed placement options with Lexi and advised that if patient was placed in a retirement it would be private pay. Referrals were sent to [facility], [facility], [facility], [facility], [facility], and [place]. [facility] and [facility] have no availability over the weekend. Yael from [facility] advised they cannot accept as patient cannot tolerate intensive therapy at this time. Rekha at [facility] advised that they are currently full. SALLY spoke with Pramod at [facility] who will need more updates before they can consider accepting. SW contacted patient's daughter, Lexi to provide update. Lexi states they may consider taking her home with 24 hour supports before sending her to a far away facility. Patient is being admitted observation. SW contacted [facility] who advised they will not be able to accommodate 24 hour care until next week. SW will continue to follow.
--- NOTE | 2020-05-20 19:00 | NUR ---
Report received, resumed care for retail shift leader. Day shift nurse Coretta RN on phone with Dr. Conrad for consult due to increase in troponins. No new orders received-states Dr. Rodriguez will see patient in AM. Will continue to monitor.
[2020-05-20 20:00] VITALS: BP 122/61; PULSE 75; TEMP 97.6
--- NOTE | 2020-05-20 20:00 | NUR ---
Report received, assumed care for bale sewer. Assessment complete. VS stable. A&Ox3-drowsy. Denies nausea/shortness of breath. Rating pain to head/pelvis 7/10 on pain scale-described as constant ache with intermittent sharpness. Tradmadol given per dr order. Multiple areas pf bruising noted-bilat upper and lower ext, right side of head/face, right hip, right shoulder/back. States "I have been falling a lot so I have bruises every where." Plan of care discussed for this shift to include HS meds/pain meds/calling for needs. Verbalizes understanding/denies questions/concerns. Call light in reach. Will monitor.
[2020-05-20 23:45] VITALS: BP 137/51; PULSE 76; TEMP 97.7
--- NOTE | 2020-05-21 00:50 | NUR ---
erp technical lead called with reports of A Fib on monitor. VS completed-BP 127/63, HR 77 apically, O2 sat 92% on RA, resps 18. Denies chest pain, shortness of breath or nausea. Cards consult called earlier this shift to Dr. Conrad. No new orders recieved-stated Dr Rodriguez to see in AM.
[2020-05-21 03:38] VITALS: BP 130/54; PULSE 71; TEMP 98.5
[2020-05-21 06:06] LABS: BASO # 0.1 (0.0-0.2); BASO % 0.5 % (0.0-2.0); EOS # 0.1 (0.0-0.7); EOS % 1.3 % (0-4.0); GRAN # 6.5 (1.4-6.5); GRAN % 70.9 % (42.2-75.2); LYMPH # 1.4 (1.2-3.4); MEAN CELL VOLUME 91 fl (80.0-100.0); MEAN CORPUSCULAR HGB CONC 33 g/dl (33.0-37.0); MEAN PLATELET VOLUME 13.2 fl (7.4-10.4); MONO % 11.4 % (1.7-9.3); PLATELET COUNT 115 K/mm3 (130-400); RED BLOOD COUNT 3.07 M/mm3 (4.10-5.30); REDCELL DISTRIBUTION WIDTH-CV 14.1 % (11.5-14.5)
[2020-05-21 06:07] LABS: HEMATOCRIT 27.8 % (37.0-47.0); HEMOGLOBIN 9.1 g/dl (12.5-16.0); MEAN CORPUSCULAR HEMOGLOBIN 30 pg (27.0-31.0)
[2020-05-21 06:09] LABS: ALBUMIN 3.2 gm/dL (3.5-5.0); BILIRUBIN,TOTAL 1.1 mg/dL (0.0-1.0); CALCIUM 8.7 mg/dL (8.4-10.2); CREATININE, serum 1.41 (0.52-1.25); POTASSIUM 4.1 mmol/L (3.4-5.0)
[2020-05-21 07:36] VITALS: BP 135/59; PULSE 71; TEMP 98.2
--- NOTE | 2020-05-21 08:15 | NUR ---
Patient sat up and tolerated a small amount of breakfast. She reports being very tired. request ultram for pain. Medication per orders. Patient tolerated her pills whole without any difficulty. Jimy pop.
--- NOTE | 2020-05-21 08:30 | NUR ---
Hospitalist rounded & we discussed plan of care & elevated troponins. Rt made aware of EKG orders.
[2020-05-21 09:39] LABS: PATHOLOGY DIFF REVIEW OK +
--- NOTE | 2020-05-21 11:07 | NUR ---
With therapist at bedside. Patient up to bedside commode, unable to void. 2 assist with walker and gaitbelt. Altagracia had elevated pain with movement. Dyspnea noted with exertions. She followed directions well & triend hard to take steps but was unable.
[2020-05-21 11:57] VITALS: BP 125/51; PULSE 72; TEMP 98.5
--- NOTE | 2020-05-21 12:47 | NUR ---
Patient repositioned in bed & provided with incontinence care. Sitting up for lunch, tyelnol Prn for pain given with her lunch
--- NOTE | 2020-05-21 14:08 | NUR ---
SANDOVAL received a call from Hospitalist's field administrative assistant inquiering about patients status with [employer]. Sandoval did contact [facility] who indicated that adminstrators are not available during ther and that they would have a decision by Saturday. Sandoval did inform Hospitalist Interactive Web Developer of status.
[2020-05-21 16:25] VITALS: BP 115/59; PULSE 71; TEMP 97.4
--- NOTE | 2020-05-21 18:30 | NUR ---
Patient sitting up up in bed for dinner. Incontinence care provided. Ultram for pain. SHe rested well this afternoon.
--- NOTE | 2020-05-21 20:00 | NUR ---
Patient sitting up in bed. Alert and oriented x 3. Assessment complete. Denies pain at this time. SCDs to BLE. Pedal pulses intact. Takes pills whole with applesauce. Denies further needs at this time.
[2020-05-21 20:03] VITALS: BP 122/55; PULSE 71; TEMP 98.5
[2020-05-21 23:07] VITALS: BP 127/58; PULSE 75; TEMP 98.3
[2020-05-22 03:23] VITALS: BP 129/60; PULSE 77; TEMP 98.1
[2020-05-22 07:01] VITALS: BP 134/73; PULSE 78; TEMP 97.6
--- NOTE | 2020-05-22 07:05 | NUR ---
Patient has done well throughout the night, repositioned through the night. Patient incontinent of urine, pericare provided. Denies further needs at this time. Will report off to overnight stocker.
--- NOTE | 2020-05-22 09:03 | NUR ---
PT IN BED RESTING AT THIS TIME. DID NOT EAT MUCH OF HER BREAKFAST. PT HAS A VERY DIFFICULT TIME WITH SWALLOWING AND THE PATIENT IS COMPLAINING OF THIS DIFFICULTY. CONSULTED WITH PROVIDER FOR A SPEECH CONSULT. PT (PER REPORT) HAS BEEN SWALLOWING PILLS WHOLE WITH APPLESAUCE, AND DOING FINE. THIS RN WITNESSED INCREASED DIFFICULTY, AND THE PATIENT IS SWALLOWING AIR WITH MEDICATIONS AND THIN LIQUIDS. WILL CONTINUE TO MONITOR, AND AWAIT ST CONSULT. ASSESSMENT COMPLETED, PT VSS. LUNG SOUNDS ARE CLEAR IN ALL LOBES. THIS PATIENT HAS NO COMPLAINT OF PAIN AT THIS TIME. NO FURTHER CONCERNS, PT CALL LIGHT WITHIN REACH, BED ALARM ON.
[2020-05-22 09:10] LABS: MEAN CELL VOLUME 91 fl (80.0-100.0); MEAN CORPUSCULAR HGB CONC 32 g/dl (33.0-37.0); MEAN PLATELET VOLUME 12.2 fl (7.4-10.4); PLATELET COUNT 123 K/mm3 (130-400); RED BLOOD COUNT 3.36 M/mm3 (4.10-5.30); REDCELL DISTRIBUTION WIDTH-CV 14.4 % (11.5-14.5)
[2020-05-22 09:13] LABS: HEMATOCRIT 30.6 % (37.0-47.0); HEMOGLOBIN 9.8 g/dl (12.5-16.0); MEAN CORPUSCULAR HEMOGLOBIN 29 pg (27.0-31.0)
[2020-05-22 09:19] LABS: CALCIUM 9.2 mg/dL (8.4-10.2); CREATININE, serum 1.33 (0.52-1.25); MAGNESIUM 1.7 mg/dL (1.6-2.3); POTASSIUM 4.3 mmol/L (3.4-5.0)
[2020-05-22 12:00] VITALS: BP 123/59; PULSE 71; TEMP 98.4
--- NOTE | 2020-05-22 15:02 | NUR ---
PT RESTING IN BED, DOES NOT HAVE ANY COMPLAINTS. CALL LIGHT WITHIN REACH.
[2020-05-22 15:46] VITALS: BP 124/70; PULSE 74; TEMP 97.3
--- NOTE | 2020-05-22 15:56 | NUR ---
GAVE PT PAIN MEDICATION WITH APPLE SAUCE, PT THEN WANTED WATER TO HELP WASH IT DOWN. PT IS SWALLOWING A LOT OF AIR, AND IT APPEARS THAT SHE BEGINS TO ASPIRATE. ST WILL SEE THIS PATIENT TOMORROW. IT WOULD NOT BE GOOD TO HAVE THE PATIENT EAT OR DRINK UNSUPERVISED.
--- NOTE | 2020-05-22 17:58 | NUR ---
PT IS STILL HAVING DIFFICULTIES WITH EATING/SWALLOWING. PT HAS BEGUN TO COMPLAIN MORE OFTEN. SHE WILL BE NPO AFTER MIDNIGHT FOR HER LEXISCAN TOMORROW, BUT SHOULD REMAIN NPO UNTIL SPEECH THERAPY SEES HER.
--- NOTE | 2020-05-22 18:41 | NUR ---
PT HAS HAD A ROUGH DAY, PT HAS BEGUN TO HAVE SOME INCREASED ISSUES WITH SWALLOWING NOTED PRIOR. PT IS NPO FOR LEXISCAN TOMORROW, AND UNTIL HER SPEECH EVAL. PT PAIN INCREASED SIGNIFICANTLY AND REQUIRED IV PAIN MANAGEMENT. NO FURTHER CONCERNS. WILL REPORT TO FAMILY PARTNER RN.
--- NOTE | 2020-05-22 20:00 | NUR ---
PATIENT IS CONFUSED AND ASKING WHERE SHE IS. REORIENTED PATIENT AND EXPLAINED THAT SHE IS IN THE HOSPITAL.
[2020-05-22 20:01] VITALS: BP 116/70; PULSE 79; TEMP 97.6
--- NOTE | 2020-05-22 21:00 | NUR ---
IN REPORT WAS TOLD THAT PATIENT WAS NOT SWALLOWING WELL. CRUSHED THE PILLS THAT COULD BE CRUSHED AND GAVE THEM IN APPLESAUCE. PATIENT WAS HAVING TORUBLE SWALLOWING JUST THE APPLESAUCE. I WAS UNABLE TO GIVE SOME OF THE MEDICATIONS DUE TO THEM NOT BEING ABLE TO BE CRUSHED.
[2020-05-23] VITALS (12 sets, daily range): BP systolic 102–150; BP diastolic 27–79; PULSE 76–92; TEMP 97.2–99.2
--- NOTE | 2020-05-23 04:35 | NUR ---
PATIENT COMPLAINING OF PAIN. GAVE MORPHINE PER ORDERS. PROVIDED ORAL CARE.
[2020-05-23 06:07] LABS: HEMOGLOBIN 10.1 g/dl (12.5-16.0); MEAN CELL VOLUME 90 fl (80.0-100.0); MEAN CORPUSCULAR HEMOGLOBIN 29 pg (27.0-31.0); MEAN CORPUSCULAR HGB CONC 33 g/dl (33.0-37.0); PLATELET COUNT 128 K/mm3 (130-400); RED BLOOD COUNT 3.45 M/mm3 (4.10-5.30); REDCELL DISTRIBUTION WIDTH-CV 14.1 % (11.5-14.5)
[2020-05-23 06:15] LABS: HEMATOCRIT 31.1 % (37.0-47.0)
[2020-05-23 06:25] LABS: ALBUMIN 3.5 gm/dL (3.5-5.0); BILIRUBIN,TOTAL 1.2 mg/dL (0.0-1.0); CALCIUM 9.1 mg/dL (8.4-10.2); CREATININE, serum 1.21 (0.52-1.25); POTASSIUM 4.4 mmol/L (3.4-5.0); TOTAL PROTEIN 6.5 gm/dL (6.4-8.2)
--- NOTE | 2020-05-23 07:30 | NUR ---
ASSISTED PT AT BEDSIDE SHIFT REPORT WITH MOUTH SWAB FOR DRYNESS. MADE SURE PT WAS COMFORTABLE AND EXPLAINED THAT SHE IS TO BE NPO UNTIL HER PROCEDURE TODAY.
--- NOTE | 2020-05-23 09:00 | NUR ---
Initial visit; Patient thanked Hat Designer for stopping and states she isn's doing well and is here to take tests. She stated, when asked that she has someone checking on her at home in the morning and at night. She was receptive to Hat Designer keeping her in Hat Designer's prayers.
--- NOTE | 2020-05-23 16:35 | NUR ---
SALLY faxed updates to Pramod with [facility]. The patient is currently on oral treatment (pills) for cancer and Pramod was concerned about these medications. SALLY contacted the patient's daughter, Lexi regarding the medications. The patient has those medications delivered to her. Lexi inquired about the patient being able to attend her monthly appointments set by Dr. Del Angel. The patient also monthly labs and MRI. The labs are on 06/06, MRI on 06/08, and Dr. Del Angel's appointment on 06/13. Lexi wants the patient to attend all her appointments. Lexi inquired about [facility] providing private duty services at home. SALLY contacted [facility] and left message for their private duty nurse to get pricing. SALLY staffed with EUGENIA. EUGENIA spoke with Lexi and she would like [facility] to reassess the patient for post acute rehab. IPR consult placed. SALLY contacted Yael, IPR Director regarding referral. Pramod reports they could draw labs for the patient, the MRI would be private pay since insurance will not cover it if the patient is in SNF, and the appointment with Dr. Del Angel can be a telehealth appointment. SALLY contacted Aman with [facility] to provide an update on the patient. SALLY will continue to follow to ensure the safest discharge dispostion.
--- NOTE | 2020-05-23 19:42 | NUR ---
PT REPORTS A 5/10 PAIN MOST OF THE DAY, AFTER TRANSFERS AND PROCEDURES SHE WOULD RATE IT 10/10. PT REMAINED NPO MOST OF THE DAY AWAITING HER LEXISCAN AND THEN NEEDING A CONSULT WITH ST. PT REQUIRES MECHANICAL SOFT AND NECTAR THICKENED LIQUIDS. CRUSH MECIATIONS AND ADMINISTER WITH APPLE SAUCE. PT ONLY RECEIVED ORAL CARVEDILOL THIS JENNIFER AFTER ST EVAL LATE IN THE AFTERNOON. WILL RECIEVE A VIDEO SWALLOW AND MRI TOMORROW TO CONTINUE EVALUATION. PT IS SOMEWHAT DISORIENTED AND CONFUSED BUT HAS BEEN ALERT. PT WAS TACHYPNIC MUCH OF THE DAY DUE TO ANXIETY ABOUT TRANSPORTAION, PT WAS UNABLE TO BE CONSOLED.
--- NOTE | 2020-05-23 21:55 | NUR ---
PT IN BED, HAS NOT EATEN ANY SUPPER. ASSISTED WITH PILLS IN APPLESAUCE, TAKES WITHOUT PROBLEM. IS ALERT, ORIENTED WITH SOME FORGETFULNESS. HAS IVF INFUSING TO LEFT AC WITHOUT REDNESS OR SWELLING. DENIES NEED TO USE THE BATHROOM, HAS DEPENDS ON. BRUISING NOTED TO RIGHT SIDE OF FOREHEAD FROM FALL AT HOME. BED ALARM ON.
--- NOTE | 2020-05-23 22:20 | NUR ---
COVID SWAB OBTAINED.
--- NOTE | 2020-05-24 03:00 | NUR ---
Pt incontinent of bladder. Was attempting to get out of bed on own. Bed alarm is set. Sophia cares given.
[2020-05-24 03:31] VITALS: BP 101/48; PULSE 74; TEMP 97.5
[2020-05-24 06:00] LABS: MEAN CELL VOLUME 91 fl (80.0-100.0); MEAN CORPUSCULAR HGB CONC 33 g/dl (33.0-37.0); MEAN PLATELET VOLUME 12.6 fl (7.4-10.4); PLATELET COUNT 128 K/mm3 (130-400); RED BLOOD COUNT 3.27 M/mm3 (4.10-5.30); REDCELL DISTRIBUTION WIDTH-CV 14.2 % (11.5-14.5)
[2020-05-24 06:03] LABS: HEMOGLOBIN 9.7 g/dl (12.5-16.0); MEAN CORPUSCULAR HEMOGLOBIN 30 pg (27.0-31.0)
[2020-05-24 06:04] LABS: HEMATOCRIT 29.6 % (37.0-47.0)
--- NOTE | 2020-05-24 06:06 | NUR ---
Medicated with [place] for pain in rt hip/lower abd. Takes med crushed in applesauce. Will be NPO for MRI this AM.
[2020-05-24 06:13] LABS: CALCIUM 8.7 mg/dL (8.4-10.2); CREATININE, serum 1.16 (0.52-1.25); POTASSIUM 4.2 mmol/L (3.4-5.0)
[2020-05-24 07:46] VITALS: BP 117/60; PULSE 74; TEMP 97.8
--- NOTE | 2020-05-24 11:30 | NUR ---
Patient went down for her MRI and she refused to stay on the table. She stated her pain was worse on the table. Explained why we are trying to get his done, she stated she just can not lay there. Denies nausea at this time. Will gave pain medication when she goes down for her swallow eval. She was given 1mg of IV morphine before the MRI. No other changes at this time. Call light with in reach. Bed alarm on.
[2020-05-24 11:33] VITALS: BP 123/65; BP 142/50; PULSE 75; PULSE 95; TEMP 97.8; TEMP 98.8
--- NOTE | 2020-05-24 13:26 | NUR ---
Visual Specialist contacted Pramod with [facility] regarding the referral. Pramod spoke to the patient's daughter, Lexi regarding placement at [facility]. Since the patient on oral (pills) treatment for cancer the patient would be responsible financially for the monthly MRI that is needed. Per Pramod, Lexi was not willing private pay for the MRIs. Therefore, Pramod declined the patient since they cannot meet her needs. SW attempted to contact Lexi to discuss the option of going home with private duty services, left message.
[2020-05-24 16:09] VITALS: BP 151/81; PULSE 92; TEMP 97.7
--- NOTE | 2020-05-24 18:00 | NUR ---
Patient had swallow study done. She still does not do well with swallowing solids. She did ok with thickened liquids but no food. She is resting comfortably at this time. NPO after midnight for morning MRI. No other changes at this time. Call caro ellis.
[2020-05-24 19:30] VITALS: BP 150/85; PULSE 95; TEMP 98.6
--- NOTE | 2020-05-24 21:00 | NUR ---
GAVE PATIENT SMALL SIPS OF WATER WITH SOME APPLESAUCE. PATIENT WAS NOT SWALLOWING WELL. HELD PATIENT'S MEDS FOR TONIGHT. PATIENT IS ALERT BUT IS CONFUSED AND DISORIENTED. CALL LIGHT IS WITHIN REACH.
[2020-05-24 22:59] VITALS: BP 144/75; PULSE 85; TEMP 98.7
--- NOTE | 2020-05-25 01:18 | NUR ---
PATIENT INCONTINENT OF URINE. PATIENT CLEANED UP AND LINENS WERE CHANGED.
[2020-05-25 02:57] VITALS: BP 123/63; PULSE 84; TEMP 98.8
--- NOTE | 2020-05-25 06:25 | NUR ---
PATIENT SLEPT WELL THROUGH THE NIGHT. FLUIDS RUNNING AND PATIENT NPO FOR HER MRI. NO OTHER NEEDS AT THIS TIME. CALL LIGHT IN REACH.
[2020-05-25 06:41] LABS: MEAN CELL VOLUME 90 fl (80.0-100.0); MEAN CORPUSCULAR HGB CONC 33 g/dl (33.0-37.0); MEAN PLATELET VOLUME 12.4 fl (7.4-10.4); PLATELET COUNT 156 K/mm3 (130-400); RED BLOOD COUNT 3.26 M/mm3 (4.10-5.30); REDCELL DISTRIBUTION WIDTH-CV 13.9 % (11.5-14.5)
[2020-05-25 06:50] LABS: HEMATOCRIT 29.2 % (37.0-47.0); HEMOGLOBIN 9.5 g/dl (12.5-16.0); MEAN CORPUSCULAR HEMOGLOBIN 29 pg (27.0-31.0)
[2020-05-25 06:52] LABS: CALCIUM 8.8 mg/dL (8.4-10.2); CREATININE, serum 1.07 (0.52-1.25); MAGNESIUM 1.5 mg/dL (1.6-2.3); POTASSIUM 4.3 mmol/L (3.4-5.0)
[2020-05-25 12:15] VITALS: BP 113/64; PULSE 80; TEMP 98.1
--- NOTE | 2020-05-25 14:48 | NUR ---
A Palliative Care consult was ordered. Hospitalist received approval for one family member to attend one meeting. Hospitalist would like the meeting to be at 1600. SW contacted the patient's daughter, Lexi. She was agreeable.
--- NOTE | 2020-05-25 16:33 | NUR ---
Furniture Assembly Supervisor attended palliative care meeting with the patient's daughter, Lexi. Also present the patient's nurse and PA. PA discussed the patient's condition has declined. Lexi was agreeable to going home with [facility] vs pursing placement and rehab. SALLY informed Lexi that the patient would need someone 24/12. Lexi will arrange for private duty services for the patient with [facility]. Lexi was inquiring about a hospital bed. SALLY informed Lexi that [facility] would be able to provide the hospital bed. After the meeting, SALLY contacted Curtis Holguin with [facility] to discuss the patient. Curtis reports that Lexi had already contacted them regarding hospice. SALLY informed Curtis that the patient will be needing a hospital bed. SALLY faxed referral. SALLY collaborated the above information with the patient's nurse.
[2020-05-25 16:54] VITALS: BP 125/62; PULSE 80; TEMP 97.3
--- NOTE | 2020-05-25 18:00 | NUR ---
Patient has been resting comfortably this afternoon. She went down for her MRI this morning. Family meeting held this afternoon. Her daughter agreed to discharging patient home on hospice. Donya from will work on making arrangement in the am. Patient has not been able to eat again today. She was able to take a few bites a few times this afternoon but not much more. She is able to drink liquids better than eating. No other changes at this time. Call light within reach. Bed alarm on.
[2020-05-25 19:14] VITALS: BP 138/78; PULSE 84; TEMP 97.5
--- NOTE | 2020-05-25 22:00 | NUR ---
PT UNABLE TO TAKE MEDS. DRINKS THICKENED LIQUIDS FAIR. ORAL CARES GIVEN OFTEN. IS ALERT, DISORIENTED. IVF INFUSING TO LEFT AC. KENYA CARES GIVEN AFTER INCONTINENCE OF URINE. PT REPORTS BEING TOO WEAK TO GET OUT OF BED.
--- NOTE | 2020-05-25 22:45 | NUR ---
PLACED #16FR PRATT CATHETER TO BSD, URINE LIGHT YELLOW AND CLEAR. PT TOLERATED WITHOUT PROBLEM. ASKING FOR PAIN MEDS. HAS ONLY PO NORCO. WILL ASK DR GAONA FOR IV.
--- NOTE | 2020-05-25 23:03 | NUR ---
DR GAONA GIVES NEW ORDER FOR MORPHINE 1MG IV Q4HR PRN PAIN. MEDICATED AT THIS TIME.
[2020-05-25 23:48] VITALS: BP 130/66; PULSE 83; TEMP 99
[2020-05-26 02:48] VITALS: BP 116/60; PULSE 77; TEMP 97.6
--- NOTE | 2020-05-26 04:30 | NUR ---
Pt has slept fair this shift. Good urine output from archer. Oral care given.
[2020-05-26 07:34] VITALS: BP 144/82; PULSE 77; TEMP 98.4
--- NOTE | 2020-05-26 08:00 | NUR ---
PATIENT IS ORIENTED X2 WITH SOME FORGETFULNESS/CONFUSION NOTED. VSS WITH TELE INPLACE. PATIENT CURRENTLY COMFORTABLE UP IN BED. PATIENT HAS BEEN HAVING DIFFICULTY WITH SWALLOWING, EVEN ON [facility]ITAL SOFT DIET. PATIENT UNABLE TO TAKE PO MEDS. PATIENT WAS ABLE TO TAKE SIPS OF NECTAR THICK LIQUIDS WHEN SITTING STRAIGHT UP. NO C/O N/V. PRATT TO DD. PATIENT IS THIN, WEAK & PALE. PATIENT IS TO DISCHARGE HOME TODAY WITH HOSPICE. DNR. HEAD TO TOE ASSESSMENT COMPLETE.
[2020-05-26] MEDS ORDERED: ROXANOL 20MG20 MG/ML SL (11:02)
[2020-05-26] MEDS ORDERED: TRANSDERM-0.5 MG/21 TD (11:03)
[2020-05-26] MEDS ORDERED: ATIVAN 1MG T1 MG/TAB PO (11:03)
[2020-05-26] MEDS ORDERED: BLUE-EMU LIDOC1 EACH TP (11:04)
[2020-05-26] MEDS ORDERED: BIOTENE MOIST44.3 ML PO (11:04)
[2020-05-26 12:54] VITALS: BP 117/57; PULSE 80; TEMP 97.7
--- NOTE | 2020-05-26 13:57 | NUR ---
The patient is to discharge home today, 05/26 with [facility]. [facility] has accepted the patient for services. They have delivered the patient's hospital bed to her home. SW faxed discharge orders. [facility] transport was set up for 1400. The team and the patient's daughter was in agreeance. There are no additional needs.
--- NOTE | 2020-05-26 14:13 | NUR ---
PATIENT DISCHARGING VIA EMS TO HOME WITH HOSPICE. IV DC'D BY MATERIALS MANAGER. TELE OFF. PERSONAL BELONGINGS SENT WITH EMS. PATIENT DISCHARGED.
== END 2020-05-26 14:15 | disposition hospice, home (50) | DRG 535 ==
LOC: COL.ER 10:43 → SURG 14:18
PROVIDERS: Nurse Practitioner; Physician Assistant; ADMIT Hospitalist
DX: S32.511A Fracture of superior rim of right pubis, initial encounter for closed fracture (principal); I21.A1 Myocardial infarction type 2; I42.9 Cardiomyopathy, unspecified; E87.1 Hypo-osmolality and hyponatremia; I13.0 Hypertensive heart and chronic kidney disease with heart failure and stage 1 through stage 4 chronic kidney disease, or unspecified chronic kidney disease; I50.20 Unspecified systolic (congestive) heart failure; W19.XXXA Unspecified fall, initial encounter; N18.30 Chronic kidney disease, stage 3 unspecified; E78.5 Hyperlipidemia, unspecified; F32.9 Major depressive disorder, single episode, unspecified; D64.9 Anemia, unspecified; D69.6 Thrombocytopenia, unspecified; Z66 Do not resuscitate; R62.7 Adult failure to thrive; I27.20 Pulmonary hypertension, unspecified; D72.829 Elevated white blood cell count, unspecified; R13.10 Dysphagia, unspecified; Z85.72 Personal history of non-Hodgkin lymphomas
CPT/HCPCS: 99231-AI; 99232-AI; 99233-AI; 99239; A9500; A9585; G0378; J1650; J2270; J2785; J7030